=== PATIENT | male | born 1935 | race Caucasian/White ===

== ENCOUNTER 2021-03-19 10:22 | Observation (INO) | payer OTHER, BC ==
[2021-03-19] MEDS ORDERED: SODIUM CHLORIDE 0.9% 1000 ML INFUS.BAG IV ONE (10:54)
[2021-03-19] MEDS ORDERED: SODIUM CHLORIDE 0.9% 500 ML INFUS.BAG IV ONE (10:54)
[2021-03-19 11:44] LABS: BASO % 0.4 % (0-2.0); EOS % 0.9 % (0-4.5); HEMATOCRIT 34.9 % (35.4-49); HEMOGLOBIN 12.1 GM/dL (11.7-16.9); LYMPH % 8.8 % (8-40); MCH 32.8 pg (25.7-33.7); MCHC 34.6 g/dl (32.0-35.9); MEAN PLT VOLUME 8.9 fl (7.5-11.1); MONO % 9.8 % (3.8-10.2); NEUT % 80.1 % (42.8-82.8); PLATELET COUNT 152 10^3/uL (134-434); RBC 3.67 M/mm3 (4.00-5.60); RDW 14.3 % (11.9-15.9); WHITE BLOOD COUNT 10.9 K/mm3 (4.0-10.0)
[2021-03-19 11:50] LABS: INR 1.44 (0.83-1.09); PROTHROMBIN TIME (PATIENT) 16.2 SEC (9.7-13.0)
[2021-03-19 11:53] LABS: ACTIVATED PTT 26.4 SECONDS (25.2-36.5)
[2021-03-19 12:03] LABS: CHLORIDE 102 mmol/L (98-107); SODIUM 139 mmol/L (136-145)
[2021-03-19 12:05] LABS: CALCIUM 8.9 mg/dL (8.5-10.1)
[2021-03-19 12:06] LABS: BLOOD UREA NITROGEN 30.3 mg/dL (7-18); CO2 27 mmol/L (21-32); GLUCOSE,RANDOM 113 mg/dL (74-106)
[2021-03-19 12:09] LABS: CREATININE 2.6 mg/dL (0.55-1.3); SGOT/AST 20 U/L (15-37); SGPT/ALT 18 U/L (13-61)
[2021-03-19 12:11] LABS: BILIRUBIN,TOTAL 0.8 mg/dL (0.2-1); TOT PROT 6.2 g/dl (6.4-8.2)
[2021-03-19 12:12] LABS: ALK PHOS 62 U/L (45-117)
[2021-03-19 12:14] LABS: N-TERMINAL BNP 2121.2 pg/ml (5-450)
[2021-03-19 12:33] LABS: ANION GAP 10 MMOL/L (8-16)
[2021-03-19] MEDS ORDERED: POTASSIUM CHLORIDE TABS 20 MEQ TABLET.ER (FP) PO ONE ×5 (12:35→14:36)
[2021-03-19 15:10] LABS: PHOSPHOROUS 2.5 mg/dL (2.5-4.9)
[2021-03-19 20:14] LABS: EPI CELLS 3 /uL (0-25.1); HYALINE CASTS 2 /uL (0-3.1); PH,URINE 7.5 (5.0-8.0); URINE APPEARANCE CLEAR; URINE BACTERIA 22 /uL (0-1359); URINE BILIRUBIN NEGATIVE (NEGATIVE); URINE COLOR YELLOW; URINE GLUCOSE (UA) NEGATIVE (NEGATIVE); URINE KETONE NEGATIVE (NEGATIVE); URINE LEUK ESTERASE NEGATIVE (NEGATIVE); URINE NITRITE NEGATIVE (NEGATIVE); URINE PROTEIN 1+ (NEGATIVE); URINE RBC 2 /uL (0-23.9); URINE UROBILINOGEN 0.2 mg/dL (0.2-1.0); URINE WBC 6 /uL (0-25.8)
[2021-03-19 22:28] LABS: CHLORIDE 103 mmol/L (98-107); SODIUM 139 mmol/L (136-145)
[2021-03-19 22:32] LABS: CALCIUM 8.7 mg/dL (8.5-10.1); CO2 28 mmol/L (21-32); GLUCOSE,RANDOM 106 mg/dL (74-106)
[2021-03-19 22:33] LABS: BLOOD UREA NITROGEN 29.4 mg/dL (7-18)
[2021-03-19 22:53] LABS: ANION GAP 8 MMOL/L (8-16)
[2021-03-19] MEDS: KCL 10 MEQ IVPB 10 MEQ/100 ML INFUS.BAG IVPB SCH (23:34)
[2021-03-20] MEDS: KCL 10 MEQ IVPB 10 MEQ/100 ML INFUS.BAG IVPB SCH ×4 (01:19→14:45)
[2021-03-20 01:57] VITALS: BMI 29.9
[2021-03-20 07:49] LABS: HEMATOCRIT 33.9 % (35.4-49); HEMOGLOBIN 11.7 GM/dL (11.7-16.9); MCH 32.8 pg (25.7-33.7); MCHC 34.4 g/dl (32.0-35.9); MEAN CELL VOLUME 95.4 fl (80-96); MEAN PLT VOLUME 9.5 fl (7.5-11.1); PLATELET COUNT 140 10^3/uL (134-434); RBC 3.56 M/mm3 (4.00-5.60); RDW 14.1 % (11.9-15.9); WHITE BLOOD COUNT 9.1 K/mm3 (4.0-10.0)
[2021-03-20 08:15] LABS: CHLORIDE 105 mmol/L (98-107); SODIUM 141 mmol/L (136-145)
[2021-03-20 08:18] LABS: ALBUMIN 2.8 g/dl (3.4-5.0); BLOOD UREA NITROGEN 26.5 mg/dL (7-18); CALCIUM 8.6 mg/dL (8.5-10.1); CO2 28 mmol/L (21-32); GLUCOSE,RANDOM 104 mg/dL (74-106); MAGNESIUM 2.1 mg/dL (1.8-2.4)
[2021-03-20 08:21] LABS: CREATININE 1.8 mg/dL (0.55-1.3); PHOSPHOROUS 2.9 mg/dL (2.5-4.9); SGOT/AST 17 U/L (15-37); SGPT/ALT 18 U/L (13-61)
[2021-03-20 08:23] LABS: BILIRUBIN,TOTAL 0.6 mg/dL (0.2-1); TOT PROT 5.8 g/dl (6.4-8.2)
[2021-03-20 08:24] LABS: ALK PHOS 58 U/L (45-117)
[2021-03-20 08:43] LABS: ANION GAP 8 MMOL/L (8-16)
[2021-03-20] MEDS ORDERED: METOPROLOL TARTRATE 50 MG TABLET (FP) PO SCH (10:00)
[2021-03-20] MEDS ORDERED: POTASSIUM CHLORIDE ORAL LIQUID 20 MEQ/15 ML PO SCH (10:00)
[2021-03-20] MEDS ORDERED: PATIENT'S OWN MEDICATION (NON-FORMULARY) (Memantine Hcl/Donepezil Hcl [Namzaric 28 Mg-10 M PO SCH (10:45)
[2021-03-20] MEDS: amLODIPine BESYLATE 5 MG TABLET (FP) PO SCH ×2 (11:13→11:21)
[2021-03-20 17:31] LABS: MAGNESIUM 2.1 mg/dL (1.8-2.4)
[2021-03-20] MEDS ORDERED: POTASSIUM CHLORIDE TABS 10 MEQ TABLET.ER (FP) PO ONE (22:10)
[2021-03-20] MEDS: HEPARIN NA (PORCINE) 5,000 UNITS/ML 1ML VIAL SQ SCH (22:20)
[2021-03-20] MEDS: MEMANTINE HCL 10 MG TABLET (FP) PO SCH (22:20)
[2021-03-20] MEDS: DONEPEZIL HCL 10 MG TABLET (FP) PO SCH (22:20)
[2021-03-21] MEDS ORDERED: POTASSIUM CHLORIDE TABS 20 MEQ TABLET.ER (FP) PO ONE (07:54)
[2021-03-21] MEDS ORDERED: KCL 10 MEQ IVPB 10 MEQ/100 ML INFUS.BAG IVPB SCH (09:30)
[2021-03-21] MEDS ORDERED: POTASSIUM CHLORIDE 10 MEQ in SODIUM CHLORIDE 1,000 ML IVPB SCH (09:30)
[2021-03-21] MEDS: MEMANTINE HCL 10 MG TABLET (FP) PO SCH ×2 (10:17→22:14)
[2021-03-21] MEDS: HEPARIN NA (PORCINE) 5,000 UNITS/ML 1ML VIAL SQ SCH ×2 (10:18→22:14)
[2021-03-21] MEDS: LOSARTAN POTASSIUM 25 MG TABLET PO SCH (10:18)
[2021-03-21 12:46] LABS: BASO % 0.3 % (0-2.0); EOS % 1.7 % (0-4.5); HEMATOCRIT 34.6 % (35.4-49); HEMOGLOBIN 11.8 GM/dL (11.7-16.9); LYMPH % 13.5 % (8-40); MCH 32.2 pg (25.7-33.7); MCHC 34.1 g/dl (32.0-35.9); MEAN CELL VOLUME 94.4 fl (80-96); MEAN PLT VOLUME 9.8 fl (7.5-11.1); MONO % 7.9 % (3.8-10.2); NEUT % 76.6 % (42.8-82.8); PLATELET COUNT 144 10^3/uL (134-434); RBC 3.66 M/mm3 (4.00-5.60); RDW 14.1 % (11.9-15.9); WHITE BLOOD COUNT 8.9 K/mm3 (4.0-10.0)
[2021-03-21] MEDS: SODIUM CHLORIDE 0.9%/KCL 20 MEQ/1,000 ML INFUS.BAG IV SCH (12:55)
[2021-03-21] MEDS: ASPIRIN 81 MG CHEWABLE TABLETS PO SCH (12:55)
[2021-03-21 13:07] LABS: CHLORIDE 105 mmol/L (98-107); SODIUM 140 mmol/L (136-145)
[2021-03-21 13:09] LABS: CALCIUM 8.7 mg/dL (8.5-10.1)
[2021-03-21 13:10] LABS: ALBUMIN 2.8 g/dl (3.4-5.0); BLOOD UREA NITROGEN 20.1 mg/dL (7-18); CO2 26 mmol/L (21-32); GLUCOSE,RANDOM 101 mg/dL (74-106); MAGNESIUM 2.1 mg/dL (1.8-2.4)
[2021-03-21 13:13] LABS: SGPT/ALT 16 U/L (13-61)
[2021-03-21 13:14] LABS: CREATININE 1.6 mg/dL (0.55-1.3); SGOT/AST 15 U/L (15-37)
[2021-03-21 13:15] LABS: TOT PROT 5.8 g/dl (6.4-8.2)
[2021-03-21 13:16] LABS: ALK PHOS 60 U/L (45-117); BILIRUBIN,TOTAL 0.7 mg/dL (0.2-1)
[2021-03-21 13:32] LABS: ANION GAP 9 MMOL/L (8-16)
[2021-03-21] MEDS: DONEPEZIL HCL 10 MG TABLET (FP) PO SCH (22:14)
[2021-03-22] MEDS ORDERED: POTASSIUM CHLORIDE TABS 20 MEQ TABLET.ER (FP) PO ONE ×2 (02:59→23:02)
[2021-03-22] MEDS: ASCORBIC ACID 500 MG TABLET (FP) PO SCH (10:43)
[2021-03-22] MEDS: ASPIRIN 81 MG CHEWABLE TABLETS PO SCH (10:43)
[2021-03-22] MEDS: HEPARIN NA (PORCINE) 5,000 UNITS/ML 1ML VIAL SQ SCH ×2 (10:43→21:21)
[2021-03-22] MEDS: ZINC SULFATE 220 MG CAPSULE (FP) PO SCH (10:43)
[2021-03-22] MEDS: MEMANTINE HCL 10 MG TABLET (FP) PO SCH ×2 (10:43→21:21)
[2021-03-22] MEDS: LOSARTAN POTASSIUM 25 MG TABLET PO SCH (10:43)
[2021-03-22] MEDS: SODIUM CHLORIDE 0.9%/KCL 20 MEQ/1,000 ML INFUS.BAG IV SCH ×2 (10:44→11:53)
[2021-03-22 13:34] LABS: BASO % 0.4 % (0-2.0); EOS % 4.1 % (0-4.5); HEMATOCRIT 35.5 % (35.4-49); HEMOGLOBIN 12.3 GM/dL (11.7-16.9); LYMPH % 14.1 % (8-40); MCH 32.7 pg (25.7-33.7); MCHC 34.7 g/dl (32.0-35.9); MEAN CELL VOLUME 94.3 fl (80-96); MEAN PLT VOLUME 9.4 fl (7.5-11.1); MONO % 7.7 % (3.8-10.2); NEUT % 73.7 % (42.8-82.8); PLATELET COUNT 140 10^3/uL (134-434); RBC 3.76 M/mm3 (4.00-5.60); RDW 14.4 % (11.9-15.9); WHITE BLOOD COUNT 9.3 K/mm3 (4.0-10.0)
[2021-03-22 14:00] LABS: CALCIUM 8.7 mg/dL (8.5-10.1)
[2021-03-22 14:01] LABS: ALBUMIN 2.9 g/dl (3.4-5.0); BLOOD UREA NITROGEN 16.3 mg/dL (7-18); MAGNESIUM 2.1 mg/dL (1.8-2.4)
[2021-03-22 14:04] LABS: CREATININE 1.5 mg/dL (0.55-1.3)
[2021-03-22 14:05] LABS: BILIRUBIN,TOTAL 0.8 mg/dL (0.2-1); TOT PROT 6.1 g/dl (6.4-8.2)
[2021-03-22] MEDS: DONEPEZIL HCL 10 MG TABLET (FP) PO SCH (21:21)
[2021-03-22] MEDS ORDERED: MAGNESIUM SULFATE IN WATER 2 GM/50 ML IVPB IVPB ONE (23:15)
[2021-03-22] MEDS ORDERED: KCL 10 MEQ IVPB 10 MEQ/100 ML INFUS.BAG IVPB SCH (23:15)
[2021-03-23] MEDS: ASCORBIC ACID 500 MG TABLET (FP) PO SCH (09:21)
[2021-03-23] MEDS: MEMANTINE HCL 10 MG TABLET (FP) PO SCH (09:21)
[2021-03-23] MEDS: ZINC SULFATE 220 MG CAPSULE (FP) PO SCH (09:21)
[2021-03-23] MEDS: HEPARIN NA (PORCINE) 5,000 UNITS/ML 1ML VIAL SQ SCH (09:21)
[2021-03-23] MEDS: LOSARTAN POTASSIUM 25 MG TABLET PO SCH (09:21)
[2021-03-23] MEDS: ASPIRIN 81 MG CHEWABLE TABLETS PO SCH (09:21)
[2021-03-23] MEDS ORDERED: POTASSIUM CHLORIDE TABS 20 MEQ TABLET.ER (FP) PO SCH (10:00)
[2021-03-23 13:25] LABS: BASO % 0.7 % (0-2.0); EOS % 3.9 % (0-4.5); HEMATOCRIT 34.9 % (35.4-49); HEMOGLOBIN 11.9 GM/dL (11.7-16.9); LYMPH % 13.8 % (8-40); MCH 32.6 pg (25.7-33.7); MCHC 34.2 g/dl (32.0-35.9); MEAN CELL VOLUME 95.3 fl (80-96); MEAN PLT VOLUME 9.6 fl (7.5-11.1); MONO % 7.9 % (3.8-10.2); NEUT % 73.7 % (42.8-82.8); PLATELET COUNT 146 10^3/uL (134-434); RBC 3.67 M/mm3 (4.00-5.60); RDW 14.3 % (11.9-15.9); WHITE BLOOD COUNT 9.6 K/mm3 (4.0-10.0)
[2021-03-23 13:48] VITALS: BP 156/77; PULSE 75; TEMP 98.4
[2021-03-23 13:50] LABS: CALCIUM 8.6 mg/dL (8.5-10.1)
[2021-03-23 13:51] LABS: ALBUMIN 2.8 g/dl (3.4-5.0); BLOOD UREA NITROGEN 15.8 mg/dL (7-18); MAGNESIUM 2.5 mg/dL (1.8-2.4)
[2021-03-23 13:54] LABS: CREATININE 1.4 mg/dL (0.55-1.3)
[2021-03-23 13:56] LABS: BILIRUBIN,TOTAL 0.8 mg/dL (0.2-1)
[2021-03-23] MEDS ORDERED: LOSARTAN POTASSIUM 50 MG TABLET PO SCH (14:19)
[2021-03-23] MEDS: SODIUM CHLORIDE 0.9%/KCL 20 MEQ/1,000 ML INFUS.BAG IV SCH (14:55)
== END 2021-03-23 17:35 | disposition home or self-care (01) ==
LOC: JER 10:22 → JERBED 12:36 → UNDOADMOB 12:36 → INTOOBSV 12:36 → JERBED 14:16 → J4S 22:55
PROVIDERS: ADMIT Internal Medicine; ATTEND Nurse Practitioner Family
PROC: 3E033GC Introduction of Other Therapeutic Substance into Peripheral Vein, Percutaneous Approach (ICD-10-PCS; principal; 2021-03-19)
DX: U07.1 COVID-19 (principal); R06.02 Shortness of breath; I95.9 Hypotension, unspecified; R22.2 Localized swelling, mass and lump, trunk; I12.9 Hypertensive chronic kidney disease with stage 1 through stage 4 chronic kidney disease, or unspecified chronic kidney disease; N18.30 Chronic kidney disease, stage 3 unspecified; N17.9 Acute kidney failure, unspecified; R09.02 Hypoxemia; I35.0 Nonrheumatic aortic (valve) stenosis; N40.0 Benign prostatic hyperplasia without lower urinary tract symptoms; E87.6 Hypokalemia; R79.89 Other specified abnormal findings of blood chemistry; F03.90 Unspecified dementia, unspecified severity, without behavioral disturbance, psychotic disturbance, mood disturbance, and anxiety; D64.9 Anemia, unspecified; R22.32 Localized swelling, mass and lump, left upper limb; Z95.810 Presence of automatic (implantable) cardiac defibrillator; Z91.52 Personal history of nonsuicidal self-harm; Z97.8 Presence of other specified devices; W06.XXXA Fall from bed, initial encounter; Y93.89 Activity, other specified; Y92.230 Patient room in hospital as the place of occurrence of the external cause
CPT/HCPCS: 36415; 70450-TC; 71045-TC-FY; 71250-TC; 72125-TC; 76775-TC; 80048; 80053; 81003; 82550; 82553; 82728; 83605; 83615; 83735; 83880; 84100; 84132; 84443; 84484; 85025; 85027; 85379; 85610; 85730; 86140; 87040; 87086; 87804; 87807; 93005; 93010; 93970-TC; 96365; 96372; 97116-GP; 97161-GP; 99285-25; C9803; G0378; J1644; U0003; U0005

== ENCOUNTER 2023-09-25 17:51 | Inpatient (IN) | payer OTHER, BC ==
[2023-09-25 18:12] VITALS: BMI 27.3
[2023-09-25 20:05] LABS: BASO % 0.7 % (0-2.0); EOS % 1.7 % (0-4.5); HEMATOCRIT 25.7 % (35.4-49); HEMOGLOBIN 8.5 GM/dL (11.7-16.9); MCH 30.5 pg (25.7-33.7); MCHC 33.2 g/dl (32.0-35.9); MEAN CELL VOLUME 91.9 fl (80-96); MONO % 5.5 % (3.8-10.2); NEUT % 79.1 % (42.8-82.8); PLATELET COUNT 227 10^3/uL (134-434); RDW 17.8 % (11.9-15.9)
[2023-09-25 20:25] LABS: POTASSIUM 5.2 mmol/L (3.5-5.1)
[2023-09-25 20:27] LABS: ALBUMIN 2.8 g/dl (3.4-5.0); BLOOD UREA NITROGEN 41.7 mg/dL (7-18); CALCIUM 8.5 mg/dL (8.5-10.1)
[2023-09-25 20:30] LABS: CREATININE 2.8 mg/dL (0.55-1.3)
[2023-09-25 20:32] LABS: BILIRUBIN,TOTAL 0.4 mg/dL (0.2-1); TOT PROT 6.2 g/dl (6.4-8.2)
[2023-09-25 21:43] LABS: EPI CELLS 1 /uL (0-25.1); HYALINE CASTS 0 /uL (0-3.1); PH,URINE 5.5 (5.0-8.0); URINE APPEARANCE CLOUDY; URINE BACTERIA 6804 /uL (0-1359); URINE BILIRUBIN NEGATIVE (NEGATIVE); URINE COLOR YELLOW; URINE GLUCOSE (UA) NEGATIVE (NEGATIVE); URINE KETONE NEGATIVE (NEGATIVE); URINE LEUK ESTERASE 3+ (NEGATIVE); URINE NITRITE NEGATIVE (NEGATIVE); URINE PROTEIN 1+ (NEGATIVE); URINE RBC 129 /uL (0-23.9); URINE UROBILINOGEN 0.2 mg/dL (0.2-1.0); URINE WBC 1471 /uL (0-25.8)
[2023-09-25] MEDS ORDERED: CEFTRIAXONE 1 GM/50 ML BAG ONE (22:17)
[2023-09-25] MEDS: SODIUM CHLORIDE 0.9% 500 ML INFUS.BAG IV ONE (23:00)
[2023-09-26 06:36] LABS: BASO % 0.6 % (0-2.0); EOS % 1.4 % (0-4.5); HEMATOCRIT 24.5 % (35.4-49); HEMOGLOBIN 8.2 GM/dL (11.7-16.9); LYMPH % 18.2 % (8-40); MCH 30.8 pg (25.7-33.7); MCHC 33.6 g/dl (32.0-35.9); MEAN CELL VOLUME 91.9 fl (80-96); MEAN PLT VOLUME 9.1 fl (7.5-11.1); MONO % 6.6 % (3.8-10.2); NEUT % 73.2 % (42.8-82.8); PLATELET COUNT 195 10^3/uL (134-434); RBC 2.67 M/mm3 (4.00-5.60); RDW 17.5 % (11.9-15.9); WHITE BLOOD COUNT 8.4 K/mm3 (4.0-10.0)
[2023-09-26 06:52] LABS: POTASSIUM 3.9 mmol/L (3.5-5.1)
[2023-09-26 06:57] LABS: CALCIUM 7.9 mg/dL (8.5-10.1)
[2023-09-26 06:58] LABS: BLOOD UREA NITROGEN 38.9 mg/dL (7-18)
[2023-09-26 07:01] LABS: CREATININE 2.4 mg/dL (0.55-1.3)
[2023-09-26] MEDS: TAMSULOSIN HCL 0.4 MG CAP PO SCH (08:27)
[2023-09-26] MEDS: CARVEDILOL 3.125 MG TABLET (FP) PO SCH (09:50)
[2023-09-26] MEDS: CEFTRIAXONE 1 GM in DEXTROSE 5%-WATER - 50 ML IVPB SCH (09:55)
[2023-09-26] MEDS ORDERED: CEFTRIAXONE 1 GM/50 ML BAG ONE (09:58)
[2023-09-26] MEDS: D5-1/2NS+10 MEQ KCL - 10 MEQ/1,000 ML INFUS.BAG IV SCH (12:21)
[2023-09-26 15:44] VITALS: RESP 18
[2023-09-26] MEDS: MIRTAZAPINE 15 MG TABLET (FP) PO SCH (22:00)
[2023-09-26] MEDS: ATORVASTATIN CA 20 MG TABLET (FP) PO SCH (22:00)
[2023-09-26] MEDS: SENNOSIDES 8.6MG TABLET (FP) PO SCH (22:00)
[2023-09-27 15:09] VITALS: TEMP 97.8
[2023-09-27 18:38] VITALS: BP 133/60; PULSE 68
== END 2023-09-27 19:43 | DRG 690 ==
LOC: JER 17:51 → JERBED 22:52 → OBSVTOIN 09-26 10:16 → JERBED 09-26 10:22 → J8W 09-26 15:22
PROVIDERS: ADMIT Internal Medicine; ATTEND Family Medicine
DX: N39.0 Urinary tract infection, site not specified (principal); N18.30 Chronic kidney disease, stage 3 unspecified; N40.0 Benign prostatic hyperplasia without lower urinary tract symptoms; E78.5 Hyperlipidemia, unspecified; F03.90 Unspecified dementia, unspecified severity, without behavioral disturbance, psychotic disturbance, mood disturbance, and anxiety; I12.9 Hypertensive chronic kidney disease with stage 1 through stage 4 chronic kidney disease, or unspecified chronic kidney disease; S01.119A Laceration without foreign body of unspecified eyelid and periocular area, initial encounter; D63.1 Anemia in chronic kidney disease; W05.0XXA Fall from non-moving wheelchair, initial encounter; Y93.9 Activity, unspecified; Y92.89 Other specified places as the place of occurrence of the external cause; Y99.9 Unspecified external cause status
CPT/HCPCS: 36415; 70450-TC; 71045-TC-FY; 72125-TC; 72170-TC-FY; 80048; 80053; 81003; 82272; 82728; 82962; 83540; 83550; 84484; 85025; 87086; 87186; 93005; 93010; 93306-TC; 97116-GP; 97161-GP; 99285-25; G0378

== ENCOUNTER 2024-06-19 17:44 | Inpatient (IN) | payer OTHER, BC ==
[2024-06-19 20:34] LABS: ABSOLUTE IMMATURE GRANULOCYTES 0.07 x10^3/uL (0.0-0.031); BASOPHILS # 0.05 x10^3/uL (0.01-0.08); EOSINOPHIL % 1.1 % (0.8-7.0); EOSINOPHILS # 0.18 x10^3/uL (0.04-0.54); HEMATOCRIT 36.5 % (40.1-51.0); HEMOGLOBIN 11.2 g/dL (13.7-17.5); MCHC 30.7 g/dl (32.3-36.5); MEAN CELL VOLUME 103.1 fl (79.0-92.2); MEAN PLT VOLUME 12.6 fl (9.4-12.4); MONOCYTE # 1.12 x10^3/uL (0.30-0.82); MONOCYTE % 6.8 % (5.3-12.2); PLATELET COUNT 167 x10^3/uL (163-337); RDW 16.4 % (12.6-16.6)
[2024-06-19 21:12] LABS: CHLORIDE 130 mmol/L (98-107); POTASSIUM 3.9 mmol/L (3.5-5.1)
[2024-06-19 21:15] LABS: ALBUMIN 3.7 g/dl (3.4-5.0); CALCIUM 9.6 mg/dL (8.5-10.1); CO2 24 mmol/L (21-32); GLUCOSE,RANDOM 118 mg/dL (74-106)
[2024-06-19 21:17] LABS: SGOT/AST 12 U/L (15-37); SGPT/ALT 16 U/L (13-61)
[2024-06-19 21:19] LABS: BILIRUBIN,TOTAL 0.5 mg/dL (0.2-1); TOT PROT 7.1 g/dl (6.4-8.2)
[2024-06-19 21:20] LABS: ALK PHOS 100 U/L (45-117)
[2024-06-19 21:25] LABS: ANION GAP 9 mmol/L (4-13); CREATININE 7.8 mg/dL (0.55-1.3); SODIUM 163 mmol/L (136-145)
[2024-06-19] MEDS: SODIUM CHLORIDE 0.45% 1,000 ML IV SCH (22:55)
[2024-06-19] MEDS ORDERED: SODIUM CHLORIDE 0.45% 1,000 ML IV SCH (23:16)
[2024-06-19 23:54] LABS: URINE APPEARANCE TURBID; URINE BILIRUBIN NEGATIVE (NEGATIVE); URINE COLOR DK YELLOW; URINE GLUCOSE (UA) NEGATIVE (NEGATIVE); URINE KETONE TRACE (NEGATIVE)
[2024-06-19 23:55] LABS: EPI CELLS 31.6 /uL (0-25.1); HYALINE CASTS 1189.57 /uL (0-3.1); PH,URINE 5.5 (5.0-8.0); URINE LEUK ESTERASE 4+ (NEGATIVE); URINE NITRITE NEGATIVE (NEGATIVE); URINE PROTEIN 300 (NEGATIVE); URINE RBC 115.9 /uL (0-23.9); URINE WBC 15139.3 /uL (0-25.8)
[2024-06-20] MEDS ORDERED: CEFTRIAXONE 1 G/50 ML PREMIX 50 ML IVPB ONE (00:40)
[2024-06-20] MEDS: CEFTRIAXONE 1,000 MG in DEXTROSE 5%-WATER - 50 ML IVPB ONE (00:42)
[2024-06-20 03:42] VITALS: BMI 23.4
[2024-06-20 08:44] LABS: CHLORIDE 131 mmol/L (98-107); POTASSIUM 4.1 mmol/L (3.5-5.1)
[2024-06-20 08:50] LABS: CALCIUM 9.1 mg/dL (8.5-10.1)
[2024-06-20 08:51] LABS: ALBUMIN 3.4 g/dl (3.4-5.0); CO2 25 mmol/L (21-32); GLUCOSE,RANDOM 86 mg/dL (74-106)
[2024-06-20 08:52] LABS: ANION GAP 8 mmol/L (4-13); BLOOD UREA NITROGEN 133.4 mg/dL (7-18); SODIUM 164 mmol/L (136-145)
[2024-06-20 08:54] LABS: SGOT/AST 9 U/L (15-37); SGPT/ALT 13 U/L (13-61)
[2024-06-20 08:55] LABS: BILIRUBIN,TOTAL 0.5 mg/dL (0.2-1)
[2024-06-20 08:56] LABS: TOT PROT 6.8 g/dl (6.4-8.2)
[2024-06-20 08:57] LABS: ALK PHOS 100 U/L (45-117); CREATININE 8.4 mg/dL (0.55-1.3)
[2024-06-20 09:20] LABS: ABSOLUTE IMMATURE GRANULOCYTES 0.03 x10^3/uL (0.0-0.031); BASOPHILS # 0.03 x10^3/uL (0.01-0.08); EOSINOPHIL % 1.6 % (0.8-7.0); EOSINOPHILS # 0.24 x10^3/uL (0.04-0.54); HEMATOCRIT 35.2 % (40.1-51.0); MCHC 31.3 g/dl (32.3-36.5); MEAN CELL VOLUME 104.8 fl (79.0-92.2); MEAN PLT VOLUME 13.1 fl (9.4-12.4); MONOCYTE # 1.09 x10^3/uL (0.30-0.82); MONOCYTE % 7.2 % (5.3-12.2); PLATELET COUNT 158 x10^3/uL (163-337); RDW 16.1 % (12.6-16.6)
[2024-06-20] MEDS ORDERED: METOPROLOL TARTRATE 50 MG TABLET (FP) PO SCH (10:00)
[2024-06-20] MEDS: METOPROLOL TARTRATE 50 MG TABLET (FP) PO SCH (12:31)
[2024-06-20] MEDS: DEXTROSE 5%-0.2% SALINE - 1,000 ML IV SCH (12:35)
[2024-06-20] MEDS: DEXTROSE 5%-WATER - 1,000 ML IV SCH (15:03)
[2024-06-21 07:25] LABS: ABSOLUTE IMMATURE GRANULOCYTES 0.06 x10^3/uL (0.0-0.031); BASOPHILS # 0.03 x10^3/uL (0.01-0.08); EOSINOPHIL % 2.7 % (0.8-7.0); EOSINOPHILS # 0.36 x10^3/uL (0.04-0.54); HEMATOCRIT 32.9 % (40.1-51.0); MCHC 30.4 g/dl (32.3-36.5); MEAN CELL VOLUME 103.8 fl (79.0-92.2); MONOCYTE # 0.85 x10^3/uL (0.30-0.82); MONOCYTE % 6.4 % (5.3-12.2); PLATELET COUNT 151 x10^3/uL (163-337); RDW 16.5 % (12.6-16.6)
[2024-06-21 07:46] LABS: CHLORIDE 126 mmol/L (98-107); SODIUM 159 mmol/L (136-145)
[2024-06-21 08:07] LABS: ANION GAP 10 mmol/L (4-13); CALCIUM 9.3 mg/dL (8.5-10.1); CO2 22 mmol/L (21-32); GLUCOSE,RANDOM 106 mg/dL (74-106)
[2024-06-21 08:08] LABS: ALBUMIN 3.2 g/dl (3.4-5.0)
[2024-06-21 08:11] LABS: SGOT/AST 15 U/L (15-37); SGPT/ALT 14 U/L (13-61)
[2024-06-21 08:12] LABS: BILIRUBIN,TOTAL 0.5 mg/dL (0.2-1); TOT PROT 6.4 g/dl (6.4-8.2)
[2024-06-21 08:13] LABS: ALK PHOS 95 U/L (45-117)
[2024-06-21 08:42] LABS: BLOOD UREA NITROGEN 133.3 mg/dL (7-18)
[2024-06-21] MEDS: CEFTRIAXONE 1 G/50 ML PREMIX 50 ML IVPB SCH (15:37)
[2024-06-22 07:57] LABS: ABSOLUTE IMMATURE GRANULOCYTES 0.05 x10^3/uL (0.0-0.031); BASOPHILS # 0.03 x10^3/uL (0.01-0.08); EOSINOPHIL % 2.6 % (0.8-7.0); EOSINOPHILS # 0.26 x10^3/uL (0.04-0.54); HEMATOCRIT 30.4 % (40.1-51.0); HEMOGLOBIN 9.4 g/dL (13.7-17.5); MCHC 30.9 g/dl (32.3-36.5); MEAN CELL VOLUME 100.3 fl (79.0-92.2); MEAN PLT VOLUME 12.9 fl (9.4-12.4); MONOCYTE # 0.82 x10^3/uL (0.30-0.82); MONOCYTE % 8.3 % (5.3-12.2); PLATELET COUNT 131 x10^3/uL (163-337); RDW 16.1 % (12.6-16.6)
[2024-06-22 08:12] LABS: CHLORIDE 122 mmol/L (98-107); POTASSIUM 3.2 mmol/L (3.5-5.1); SODIUM 152 mmol/L (136-145)
[2024-06-22 08:14] LABS: ANION GAP 9 mmol/L (4-13); CALCIUM 8.7 mg/dL (8.5-10.1); CO2 21 mmol/L (21-32)
[2024-06-22 08:15] LABS: ALBUMIN 2.8 g/dl (3.4-5.0); GLUCOSE,RANDOM 117 mg/dL (74-106)
[2024-06-22 08:18] LABS: SGOT/AST 18 U/L (15-37); SGPT/ALT 12 U/L (13-61)
[2024-06-22 08:19] LABS: BILIRUBIN,TOTAL 0.4 mg/dL (0.2-1); TOT PROT 5.9 g/dl (6.4-8.2)
[2024-06-22 08:21] LABS: ALK PHOS 87 U/L (45-117)
[2024-06-22 08:41] LABS: BLOOD UREA NITROGEN 130.7 mg/dL (7-18); CREATININE 9.2 mg/dL (0.55-1.3)
[2024-06-22] MEDS: DEXTROSE 5%-WATER - 1,000 ML IV SCH (11:38)
[2024-06-22] MEDS: KCL 10 MEQ IVPB 10 MEQ/100 ML INFUS.BAG IVPB SCH (13:16)
[2024-06-22] MEDS ORDERED: HYDROmorphone HCL CARPU-JECT 2 MG/1 ML DISP.SYRIN IVPB PRN (14:38)
[2024-06-22] MEDS: ACETAMINOPHEN 1000 MG/100 ML BAG IVPB PRN (15:18)
[2024-06-23 08:22] LABS: CHLORIDE 116 mmol/L (98-107); POTASSIUM 3.3 mmol/L (3.5-5.1); SODIUM 148 mmol/L (136-145)
[2024-06-23 08:31] LABS: ALBUMIN 2.9 g/dl (3.4-5.0); ANION GAP 13 mmol/L (4-13); CALCIUM 9.1 mg/dL (8.5-10.1); CO2 19 mmol/L (21-32); GLUCOSE,RANDOM 101 mg/dL (74-106)
[2024-06-23 08:32] LABS: BILIRUBIN,TOTAL 0.4 mg/dL (0.2-1); SGOT/AST 23 U/L (15-37); SGPT/ALT 14 U/L (13-61); TOT PROT 6.2 g/dl (6.4-8.2)
[2024-06-23 08:33] LABS: ALK PHOS 88 U/L (45-117); BLOOD UREA NITROGEN 128.9 mg/dL (7-18)
[2024-06-23 08:38] LABS: CREATININE 9.1 mg/dL (0.55-1.3)
[2024-06-23 09:40] LABS: ABSOLUTE IMMATURE GRANULOCYTES 0.06 x10^3/uL (0.0-0.031); BASOPHILS # 0.02 x10^3/uL (0.01-0.08); EOSINOPHIL % 2.4 % (0.8-7.0); EOSINOPHILS # 0.26 x10^3/uL (0.04-0.54); HEMATOCRIT 31.3 % (40.1-51.0); HEMOGLOBIN 9.7 g/dL (13.7-17.5); MEAN CELL VOLUME 100.6 fl (79.0-92.2); MEAN PLT VOLUME 12.9 fl (9.4-12.4); MONOCYTE % 6.5 % (5.3-12.2); PLATELET COUNT 134 x10^3/uL (163-337); RDW 15.9 % (12.6-16.6)
[2024-06-24] MEDS: CEFUROXIME AXETIL 250 MG TABLET PO SCH (11:02)
[2024-06-24 11:13] LABS: CHLORIDE 113 mmol/L (98-107); POTASSIUM 3.2 mmol/L (3.5-5.1); SODIUM 146 mmol/L (136-145)
[2024-06-24 11:14] LABS: CALCIUM 8.7 mg/dL (8.5-10.1)
[2024-06-24 11:15] LABS: ALBUMIN 2.8 g/dl (3.4-5.0); ANION GAP 13 mmol/L (4-13); CO2 19 mmol/L (21-32); GLUCOSE,RANDOM 109 mg/dL (74-106)
[2024-06-24 11:17] LABS: BLOOD UREA NITROGEN 117.9 mg/dL (7-18)
[2024-06-24 11:18] LABS: SGOT/AST 16 U/L (15-37); SGPT/ALT 15 U/L (13-61)
[2024-06-24 11:20] LABS: BILIRUBIN,TOTAL 0.3 mg/dL (0.2-1); TOT PROT 5.9 g/dl (6.4-8.2)
[2024-06-24 11:21] LABS: ALK PHOS 89 U/L (45-117)
[2024-06-24 11:33] LABS: CREATININE 8.3 mg/dL (0.55-1.3)
[2024-06-25 07:09] LABS: ABSOLUTE IMMATURE GRANULOCYTES 0.06 x10^3/uL (0.0-0.031); BASOPHILS # 0.01 x10^3/uL (0.01-0.08); EOSINOPHIL % 2.8 % (0.8-7.0); EOSINOPHILS # 0.29 x10^3/uL (0.04-0.54); HEMATOCRIT 31.2 % (40.1-51.0); HEMOGLOBIN 10.1 g/dL (13.7-17.5); MCHC 32.4 g/dl (32.3-36.5); MEAN CELL VOLUME 96.6 fl (79.0-92.2); MEAN PLT VOLUME 13.2 fl (9.4-12.4); MONOCYTE # 0.72 x10^3/uL (0.30-0.82); MONOCYTE % 6.9 % (5.3-12.2); PLATELET COUNT 145 x10^3/uL (163-337); RDW 15.3 % (12.6-16.6)
[2024-06-25 07:36] LABS: CHLORIDE 109 mmol/L (98-107); SODIUM 141 mmol/L (136-145)
[2024-06-25 07:49] LABS: SGOT/AST 18 U/L (15-37); SGPT/ALT 15 U/L (13-61)
[2024-06-25 07:50] LABS: BILIRUBIN,TOTAL 0.4 mg/dL (0.2-1); BLOOD UREA NITROGEN 103.8 mg/dL (7-18); CALCIUM 8.7 mg/dL (8.5-10.1)
[2024-06-25 07:51] LABS: ALBUMIN 2.7 g/dl (3.4-5.0); CO2 16 mmol/L (21-32); GLUCOSE,RANDOM 106 mg/dL (74-106); TOT PROT 5.9 g/dl (6.4-8.2)
[2024-06-25 07:52] LABS: ALK PHOS 90 U/L (45-117)
[2024-06-25 07:57] LABS: CREATININE 7.2 mg/dL (0.55-1.3)
[2024-06-25 08:00] LABS: ANION GAP 15 mmol/L (4-13); POTASSIUM 2.6 mmol/L (3.5-5.1)
[2024-06-25] MEDS: KCL 10 MEQ IVPB 10 MEQ/100 ML INFUS.BAG IVPB SCH ×2 (10:29→15:23)
[2024-06-25] MEDS: POTASSIUM CHLORIDE 20 MEQ in DEXTROSE 5%-WATER - 1,000 ML IV SCH (17:30)
[2024-06-26 06:08] VITALS: RESP 18
[2024-06-26 10:04] LABS: CHLORIDE 114 mmol/L (98-107); SODIUM 146 mmol/L (136-145)
[2024-06-26 10:05] LABS: POTASSIUM 2.7 mmol/L (3.5-5.1)
[2024-06-26 10:06] LABS: ANION GAP 12 mmol/L (4-13); BLOOD UREA NITROGEN 92.6 mg/dL (7-18); CALCIUM 8.6 mg/dL (8.5-10.1); CO2 20 mmol/L (21-32)
[2024-06-26 10:07] LABS: GLUCOSE,RANDOM 77 mg/dL (74-106)
[2024-06-26 10:09] LABS: CREATININE 6.6 mg/dL (0.55-1.3)
[2024-06-26] MEDS: KCL 10 MEQ IVPB 10 MEQ/100 ML INFUS.BAG IVPB SCH (12:26)
[2024-06-26] MEDS: D5-1/2NS+40 MEQ KCL - 40 MEQ/1,000 ML INFUS.BAG IV SCH (14:11)
[2024-06-26 15:30] VITALS: BP 123/69; PULSE 61; TEMP 96.9
== END 2024-06-26 16:57 | DRG 682 ==
LOC: JER 17:44 → JERBED 06-20 00:34 → J4W 06-20 02:48
PROVIDERS: ADMIT Hospitalist; ATTEND Family Medicine
DX: N17.9 Acute kidney failure, unspecified (principal); G92.8 Other toxic encephalopathy; R53.2 Functional quadriplegia; E87.0 Hyperosmolality and hypernatremia; N39.0 Urinary tract infection, site not specified; F03.90 Unspecified dementia, unspecified severity, without behavioral disturbance, psychotic disturbance, mood disturbance, and anxiety; N40.0 Benign prostatic hyperplasia without lower urinary tract symptoms; I12.9 Hypertensive chronic kidney disease with stage 1 through stage 4 chronic kidney disease, or unspecified chronic kidney disease; N18.30 Chronic kidney disease, stage 3 unspecified; Z86.73 Personal history of transient ischemic attack (TIA), and cerebral infarction without residual deficits; E86.0 Dehydration; D64.9 Anemia, unspecified; E87.6 Hypokalemia
CPT/HCPCS: 36415; 71045-TC-FY; 76775-TC; 80048; 80053; 81003; 82570; 84300; 85025; 86850; 86900; 86901; 87086; 93005; 93010; 99285-25; J0131